=== PATIENT | female | born 1955 | race African-American/Black ===

== ENCOUNTER → 2020-09-20 | Outpatient (CLI) | payer MEDICARE, MEDICAID ==
[~2020-09-20] MED LIST: ACYC200C MT; GUAI120017 MT; LIP40 PO; MULT1TAB PO; NEBI5TAB3 PO; SPIR25TA6 PO; WARF5TAB76 PO; WARF7.5T22 PO
== END | disposition home or self-care (01) ==
LOC: RAD 12:19
PROVIDERS: ATTEND Specialist
DX: T14.90XA Injury, unspecified, initial encounter (principal); I51.7 Cardiomegaly; R07.9 Chest pain, unspecified; X58.XXXA Exposure to other specified factors, initial encounter; Y93.89 Activity, other specified; Y92.89 Other specified places as the place of occurrence of the external cause; Y99.8 Other external cause status; Z95.2 Presence of prosthetic heart valve
CPT/HCPCS: 71046; 73030

== ENCOUNTER → 2020-10-02 | Outpatient (CLI) | payer MEDICARE, MEDICAID | END | disposition home or self-care (01) | LOC: LAB 11:47 | PROVIDERS: ATTEND Specialist | DX: I51.7 Cardiomegaly (principal); R07.9 Chest pain, unspecified | CPT/HCPCS: 71046 ==

== ENCOUNTER 2021-01-24 12:13 | Emergency (ER) | payer MEDICARE, MEDICAID ==
[~2021-01-24] VITALS: Ht 157.5 cm; Wt 75.0 kg
[2021-01-24] MEDS ORDERED: ACETAMINOPHEN 325MG TABLET PO ONE (14:30)
[2021-01-24 16:36] VITALS: BP 120/61
== END 2021-01-24 16:39 | disposition home or self-care (01) ==
LOC: ER 12:13
DX: S02.2XXA Fracture of nasal bones, initial encounter for closed fracture (principal); S00.83XA Contusion of other part of head, initial encounter; R07.89 Other chest pain; E78.00 Pure hypercholesterolemia, unspecified; I11.0 Hypertensive heart disease with heart failure; I50.9 Heart failure, unspecified; Z88.5 Allergy status to narcotic agent; Z95.0 Presence of cardiac pacemaker; Y08.89XA Assault by other specified means, initial encounter; Y93.89 Activity, other specified; Y92.512 Supermarket, store or market as the place of occurrence of the external cause
CPT/HCPCS: 70486; 71045; 73130; 99285

== ENCOUNTER 2021-07-01 08:52 | Emergency (ER) | payer MEDICARE, MEDICAID ==
[~2021-07-01] VITALS: Ht 160 cm; Wt 64.0 kg
[~2021-07-01 08:52] MED LIST changes: -ACYC200C MT; +ACYC200C31 MT
[2021-07-01] MEDS ORDERED: KETOROLAC 60MG/2ML VIAL IM ONE (09:30)
[2021-07-01 09:51] LABS: CLARITY URINE CLEAR (CLEAR); COLOR URINE YELLOW (YELLOW); KETONES URINE TRACE (NEGATIVE); LEUKOCYTE ESTERASE URINE NEGATIVE (NEGATIVE); NITRITE URINE NEGATIVE (NEGATIVE); OCCULT BLOOD URINE NEGATIVE (NEGATIVE); PH URINE 5.5 (4.5-8.0); PROTEIN URINE NEGATIVE (NEGATIVE); SPECIFIC GRAVITY URINE 1.029 (1.005-1.030); UROBILINOGEN URINE 0.2 E.U./dL (0.2-1.0)
[2021-07-01] MEDS ORDERED: METH-773 MT ×2 (11:18→12:56)
[2021-07-01 11:38] VITALS: BP 143/74
== END 2021-07-01 11:39 | disposition home or self-care (01) ==
LOC: ER 09:23
DX: M54.50 Low back pain, unspecified (principal); I11.0 Hypertensive heart disease with heart failure; I50.9 Heart failure, unspecified; E78.00 Pure hypercholesterolemia, unspecified; Z95.0 Presence of cardiac pacemaker; Z79.899 Other long term (current) drug therapy
CPT/HCPCS: 72100; 81003; 87086; 93005; 96372; 99285; J1885

== ENCOUNTER → 2023-05-08 | Outpatient (CLI) | payer MEDICARE, MEDICAID ==
[~2023-05-08] MED LIST changes: +METH-773 MT; +NEBI5TAB2 PO; -NEBI5TAB3 PO
== END | disposition home or self-care (01) ==
LOC: RAD 11:34
PROVIDERS: ATTEND Specialist
DX: I51.7 Cardiomegaly (principal); R05.9 Cough, unspecified
CPT/HCPCS: 71046

== ENCOUNTER 2025-05-02 11:47 | Emergency (ER) | payer MEDICARE, MEDICAID ==
[~2025-05-02] VITALS: Ht 165.1 cm; Wt 70.0 kg
[~2025-05-02 11:47] MED LIST changes: -ACYC200C31 MT; +FURO-151 MT; +LISI10TA26 PO; -NEBI5TAB2 PO; +NEBI5TAB9 PO; -SPIR25TA6 PO
[2025-05-02 11:55] VITALS: O2SAT 100
[2025-05-02 14:13] VITALS: BP 122/73; PULSE 71; RESP 14; TEMP 36.7; O2SAT 100
== END 2025-05-02 14:14 | disposition home or self-care (01) ==
LOC: ER 11:47
DX: S00.10XA Contusion of unspecified eyelid and periocular area, initial encounter (principal); E78.00 Pure hypercholesterolemia, unspecified; I11.0 Hypertensive heart disease with heart failure; I50.9 Heart failure, unspecified; Z79.899 Other long term (current) drug therapy; Z88.5 Allergy status to narcotic agent; Z95.0 Presence of cardiac pacemaker; W22.03XA Walked into furniture, initial encounter; Y93.89 Activity, other specified; Y92.89 Other specified places as the place of occurrence of the external cause; Y99.8 Other external cause status
CPT/HCPCS: 70486; 99284